=== PATIENT | female | born 1965 ===

== ENCOUNTER 2019-03-26 13:15 | Emergency (ER) | payer OTHER ==
[~2019-03-26] VITALS: Ht 154.9 cm; Wt 68.0 kg
[2019-03-26] MEDS ORDERED: PROMETH-CODEIN 65 ML PO (15:36)
[2019-03-26] MEDS ORDERED: FLONASE16 GM NASAL (15:36)
== END 2019-03-26 16:17 | disposition home or self-care (01) ==
LOC: ER 13:15
DX: R05 Cough (principal)

== ENCOUNTER 2020-10-19 14:37 | Outpatient (CLI) | payer OTHER ==
[~2020-10-19 14:37] MED LIST: FLONASE16 GM NASAL; PROMETH-CODEIN 65 ML PO
== END 2020-10-19 14:43 | disposition home or self-care (01) ==
LOC: MAMO-SONO 14:37
PROVIDERS: ATTEND Specialist
DX: N63.0 Unspecified lump in unspecified breast (principal); Z12.31 Encounter for screening mammogram for malignant neoplasm of breast; N64.89 Other specified disorders of breast

== ENCOUNTER 2020-11-04 15:30 | Outpatient (CLI) | payer OTHER | END 2020-11-04 15:37 | disposition home or self-care (01) | LOC: TOM 15:30 | PROVIDERS: ATTEND General Practice | DX: R51.0 Headache with orthostatic component, not elsewhere classified (principal); G43.909 Migraine, unspecified, not intractable, without status migrainosus; G93.89 Other specified disorders of brain ==

== ENCOUNTER 2020-12-07 15:40 | Emergency (ER) | payer OTHER ==
[~2020-12-07] VITALS: Ht 154.9 cm; Wt 68.0 kg
== END 2020-12-07 20:48 | disposition home or self-care (01) ==
LOC: ER 15:40
DX: S00.83XA Contusion of other part of head, initial encounter (principal); S30.0XXA Contusion of lower back and pelvis, initial encounter; W18.39XA Other fall on same level, initial encounter; Y93.89 Activity, other specified; Y92.098 Other place in other non-institutional residence as the place of occurrence of the external cause; Y99.8 Other external cause status